=== PATIENT | female | born 1965 | race African-American/Black ===

== ENCOUNTER 2025-05-03 20:25 | Emergency (ER) | payer OTHER, SELFPAY ==
[2025-05-03 20:39] VITALS: BP 148/89; PULSE 84; TEMP 36.9; O2SAT 95; BMI 22.5
--- NOTE | 2025-05-03 21:15 | XR_ITS ---
The [address] [address] Patient Name: JUSTYNA FERRER MRN: [id number] date: 1965 Sex: F Assigned Patient Location: ED.MAIN Current Patient Location: ED.MAIN Accession/Order Number: [id number] Exam Date: 05/03/2025 21:22 Report Date: 05/03/2025 22:00 At the request of: COSTA BARNEY Procedure: XR knee RT 3V XR knee RT 3V 05/03/2025 9:33 PM SIGNS AND SYMPTOMS: ^R Knee effusion PROTOCOL: Frontal and lateral radiographs of the right knee COMPARISON: None FINDINGS: There is a 5 mm radiodense pellets in the soft tissues posterior to the right knee. There is significant prepatellar soft tissue swelling. No significant joint effusion. No fracture or dislocation. The joint spaces are preserved. XR/XR knee RT 3V IMPRESSION: There is significant prepatellar soft tissue swelling. No significant joint effusion. No fracture or dislocation. Impression dictated by: Andrei Casanova M.D. 05/03/2025 10:00 PM Dictation Location: [place] [address] Electronically authenticated by: [id number] Y Date: 05/03/2025 22:00
--- NOTE | 2025-05-03 21:17 | ED.GENADUL1 ---
Documented by User: SAVITA Degroot 05/03/25 21:54 HPI HPI - General Adult General Chief complaint: Nausea/Vomiting/Diarrhea Stated complaint: Nausea/Vomiting/Diarrhea Time Seen by Provider: 05/03/25 21:03 Source: patient Mode of arrival: walk-in History of Present Illness HPI narrative: Patient is a 59-year-old female with a PMH of crack abuse and HIV that presents with complaints of persistent nausea. Patient has been in [facility] since 04/25 and reports that she has been having night sweats, nausea, and diarrhea. She usually does not vomit but has vomited about 4 times a day. Her med list was reviewed from [facility] and she is not currently on any antiemetic. She does note that her right knee and leg is also very swollen and has been this way for about 2 weeks. She states people in her family have congestive heart failure but she has never been diagnosed with that. Related Data Allergies Allergy/AdvReac Type Severity Reaction Status Date / Time Opioids - Morphine Analogues Allergy Agitated Verified 05/03/25 20:38 Review of Systems ROS Status of ROS 10 or more systems reviewed and unremarkable except as noted in history and below PFSH [facility] Social History Little interest or pleasure in doing things: not at all Feeling down, depressed, or hopeless: not at all Exam Narrative Exam Narrative: General: No distress, age-appropriate Skin: Warm, dry, no pallor. No rash. Head: Normocephalic, atraumatic. Neck: Supple, non-tender. Eye: Pupils are equal, round and EOMI. No scleral icterus. Ears, Nose, Mouth, and Throat: No nasal mucosal hypertrophy. Oral mucosa is moist, no posterior oropharynx erythema, uvula is mid-line Cardiovascular: Regular Rate and Rhythm without murmur, gallop or rub. Respiratory: No accessory muscle use or respiratory distress. Lungs are clear to auscultation, no wheezing, rales or rhonchi Chest Wall: no tenderness Musculoskeletal: Full ROM of all extremities, no calf or popliteal tenderness. Large right knee joint effusion, nontender with palpation. Bilateral lower extremity edema, right greater than left, nonpitting. GI: Abdomen is soft, distended, non tender to palpation. No masses appreciated. No rebound, guarding, or rigidity noted. Neurological: A&O x4. No cranial nerve dysfunction observed. No truncal ataxia. Moves all extremities. Sensation intact. Psychiatric: Cooperative and interactive. Normal mood and affect. Constitutional Vital Signs, click to edit/add: Last Vital Signs Temp 98.4 F 05/03/25 20:39 Pulse 84 05/03/25 20:39 Resp 19 05/03/25 20:39 BP 148/89 H 05/03/25 20:39 Pulse Ox 95 05/03/25 20:39 O2 Del Method Room Air 05/03/25 20:39 Documenting provider has reviewed patient's vital signs: yes Course Vital Signs Vital signs: Vital Signs Temperature 98.4 F 05/03/25 20:39 Pulse Rate 84 05/03/25 20:39 Respiratory Rate 19 05/03/25 20:39 Blood Pressure 148/89 H 05/03/25 20:39 Pulse Oximetry 95 05/03/25 20:39 Oxygen Delivery Method Room Air 05/03/25 20:39 Temperature 98.4 F 05/03/25 20:39 Pulse Rate 84 05/03/25 20:39 Respiratory Rate 05/03/25 20:39 Blood Pressure 148/89 H 05/03/25 20:39 Pulse Oximetry 95 05/03/25 20:39 Oxygen Delivery Method Room Air 05/03/25 20:39 Medical Decision Making MDM Narrative Medical decision making narrative: 59-year-old female with a history of HIV and prior crack cocaine use presenting with persistent nausea, vomiting, diarrhea, night sweats, and right knee/leg swelling. Vital signs with BP 148/89, mildly hypertensive, pulse 84, afebrile at 98.4 ?F. 95% O2 saturation on room air. Right hand exam reveals a large joint effusion with no erythema or pitting edema, knee has full ROM and is nontender. Patient able to ambulate on it. No calf pain, erythema, warmth, or palpable cords. Initial labs show a WBC of 6.7 with no left shift and Hgb 12.5; urinalysis notable only for small occult blood, 5?10 RBCs, and 0?2 WBCs. Initial evaluation suggests that her nausea is likely multifactorial, potentially related to HIV, medication effects, or early infectious or metabolic processes. Right knee X-ray, CMP, and BNP are pending to evaluate for structural, metabolic, or cardiac contributors. Symptomatic management initiated with Zofran 4 mg ODT for nausea. She remains hemodynamically stable at this time and patient care was transferred to Dr. Hinojosa at 2200 at the end of my shift. Disposition pending nausea improvement, p.o. challenge, labs and x-ray findings. Differential Diagnosis Differential Diagnosis: Gastroenteritis, medication/substance related, heart failure Lab Data Lab results reviewed: Yes I reviewed the patient's lab results Labs: Lab Results 05/03/25 05/03/25 Range/Units 21:28 21:32 WBC 6.7 (4.0-11.0) 10^3/uL RBC 4.63 (4.20-5.40) 10^6/uL Hgb 12.5 (12.0-16.0) g/dL Hct 39.6 (36.0-48.0) % MCV 85.5 (81.0-99.0) fL MCH 27.0 (26.7-34.0) pg MCHC 31.6 (29.9-35.2) g/dL RDW 14.8 (11.0-15.0) % Plt Count 256 (150-450) 10^3/uL MPV 8.2 L (9.5-13.5) fL Neut % (Auto) 65.0 (43.0-75.0) % Lymph % (Auto) 24.4 (20.5-60.0) % [place] % (Auto) 9.2 (1.7-12.0) % Eos % (Auto) 1.0 (0.9-7.0) % Baso % (Auto) 0.4 (0.2-2.0) % Neut # (Auto) 4.4 (1.4-6.5) 10^3/uL Lymph # (Auto) 1.6 (1.2-3.8) 10^3/uL [place] # (Auto) 0.6 (0.3-0.8) 10^3/uL Eos # (Auto) 0.1 (0.0-0.7) 10^3/uL Baso # (Auto) 0.0 (0.0-0.1) 10^3/uL Abs Immat Gran (auto) 0.00 (0.00-0.03) 10^3/uL Imm/Tot Granulo (auto) 0.0 (0.0-0.5) % Sodium 134 L (136-145) mmol/L Potassium 3.8 (3.5-5.1) mmol/L Chloride 103 (98-107) mmol/L Carbon Dioxide 34.1 H (21.0-32.0) mmol/L Anion Gap 0.7 BUN 15.0 (7.0-18.0) mg/dL Creatinine 0.78 (0.55-1.02) mg/dL Est GFR ( Amer) >60 (>=60 mL/min/1.73m^2) Est GFR (Non-Af Amer) >60 (>=60 mL/min/1.73m^2) BUN/Creatinine Ratio 19.2 Glucose 114 H (74-106) mg/dL Calcium 9.3 (8.5-10.1) mg/dL Total Bilirubin 0.3 (0.2-1.0) mg/dL AST 28 (15-37) U/L ALT 33 (14-59) U/L Alkaline Phosphatase 95 (46-116) U/L NT-Pro-B Natriuret Pep 215.0 (<=900.0) pg/mL Total Protein 7.3 (6.4-8.2) g/dL Albumin 3.3 L (3.4-5.0) g/dL Globulin 4.0 g/dL Albumin/Globulin Ratio 0.8 Urine Color Yellow (YELLOW) Urine Clarity Clear (CLEAR) Urine pH 6.0 (5.0-9.0) Ur Specific [place] 1.020 (1.005-1.025) Urine Protein Negative (NEG/TRACE) mg/dL Urine Glucose (UA) Negative (NEGATIVE) mg/dL Urine Ketones Negative (NEGATIVE) mg/dL Urine Occult Blood Small A (NEGATIVE) Urine Nitrite Negative (NEGATIVE) Urine Bilirubin Negative (NEGATIVE) Urine Urobilinogen 0.2 (0.2-1.0) EU/dL Ur Leukocyte Esterase Negative (NEGATIVE) Urine RBC 5-10 A (0-2) #/HPF Urine WBC 0-2 A (NONE SEEN) #/HPF Ur Squamous Epith Cells None seen (NONE/RARE) #/LPF Urine Crystals None seen (None Seen) #/HPF Urine Bacteria None seen (NONE SEEN) #/HPF Urine Casts None seen (NONE SEEN) #/LPF Urine Mucus None seen (NONE SEEN) Ur Culture Indicated? No Imaging Data Chest x-ray: Radiologist's impression: ITS Impressions Knee X-Ray 05/03/25 21:15 IMPRESSION: There is significant prepatellar soft tissue swelling. No significant joint effusion. No fracture or dislocation. Impression dictated by: Andrei Casanova M.D. 05/03/2025 10:00 PM Dictation Location[facility] Electronically authenticated by: [id number] Y Date: 05/03/2025 22:00 Discharge Plan Discharge Chief Complaint: Nausea/Vomiting/Diarrhea Clinical Impression: Nausea & vomiting, Diarrhea, Bursitis of right knee Patient Disposition: Home, Self-Care Print Language: Lao Instructions: Knee Bursitis (ED), Acute Nausea and Vomiting (ED), Acute Diarrhea (ED) Additional Instructions: follow up with your doctor next week for recheck. follow up with orthopedics regarding your right knee Referrals: Physician,Non-Staff, [Primary Care Provider] - 1 week Documented by User: Dexter Hinojosa MD 05/03/25 23:35 HPI HPI - General Adult General Chief complaint: Nausea/Vomiting/Diarrhea Stated complaint: Nausea/Vomiting/Diarrhea Time Seen by Provider: 05/03/25 21:03 Related Data Allergies Allergy/AdvReac Type Severity Reaction Status Date / Time Opioids - Morphine Analogues Allergy Agitated Verified 05/03/25 20:38 PFSH PFSH Social History Little interest or pleasure in doing things: not at all Feeling down, depressed, or hopeless: not at all Exam Constitutional Vital Signs, click to edit/add: Last Vital Signs Temp 98.4 F 05/03/25 20:39 Pulse 84 05/03/25 20:39 Resp 19 05/03/25 20:39 BP 148/89 H 05/03/25 20:39 Pulse Ox 95 05/03/25 20:39 O2 Del Method Room Air 05/03/25 20:39 Course Vital Signs Vital signs: Vital Signs Temperature 98.4 F 12/19/25 20:39 Pulse Rate 84 05/03/25 20:39 Respiratory Rate 19 05/03/25 20:39 Blood Pressure 148/89 H 05/03/25 20:39 Pulse Oximetry 95 05/03/25 20:39 Oxygen Delivery Method Room Air 05/03/25 20:39 Temperature 98.4 F 05/03/25 20:39 Pulse Rate 84 05/03/25 20:39 Respiratory Rate 19 05/03/25 20:39 Blood Pressure 148/89 H 05/03/25 20:39 Pulse Oximetry 95 05/03/25 20:39 Oxygen Delivery Method Room Air 05/03/25 20:39 Medical Decision Making MDM Narrative Medical decision making narrative: 59-year-old female with a history of HIV and prior crack cocaine use presenting with persistent nausea, vomiting, diarrhea, night sweats, and right knee/leg swelling. Vital signs with BP 148/89, mildly hypertensive, pulse 84, afebrile at 98.4 ?F. 95% O2 saturation on room air. Right hand exam reveals a large joint effusion with no erythema or pitting edema, knee has full ROM and is nontender. Patient able to ambulate on it. No calf pain, erythema, warmth, or palpable cords. Initial labs show a WBC of 6.7 with no left shift and Hgb 12.5; urinalysis notable only for small occult blood, 5?10 RBCs, and 0?2 WBCs. Initial evaluation suggests that her nausea is likely multifactorial, potentially related to HIV, medication effects, or early infectious or metabolic processes. Right knee X-ray, CMP, and BNP are pending to evaluate for structural, metabolic, or cardiac contributors. Symptomatic management initiated with Zofran 4 mg ODT for nausea. She remains hemodynamically stable at this time and patient care was transferred to Dr. Hinojosa at 2200 at the end of my shift. Disposition pending nausea improvement, p.o. challenge, labs and x-ray findings. xray returned normal except prepatella swelling. labs without evidence of dehydration. Patient examined and her knee prepatella effusion is nontender. She is advised to follow up with ortho regarding her knee. Her nausea did resolve with zofran. She does state that she has nausea each AM . will plan Protonix as GERD may be responsible for her AM nausea and zofran to use prn. she is to follow up with a PCP Lab Data Labs: Lab Results 05/03/25 05/03/25 Range/Units 21:28 21:32 WBC 6.7 (4.0-11.0) 10^3/uL RBC 4.63 (4.20-5.40) 10^6/uL Hgb 12.5 (12.0-16.0) g/dL Hct 39.6 (36.0-48.0) % MCV 85.5 (81.0-99.0) fL MCH 27.0 (26.7-34.0) pg MCHC 31.6 (29.9-35.2) g/dL RDW 14.8 (11.0-15.0) % Plt Count 256 (150-450) 10^3/uL MPV 8.2 L (9.5-13.5) fL Neut % (Auto) 65.0 (43.0-75.0) % Lymph % (Auto) 24.4 (20.5-60.0) % [place] % (Auto) 9.2 (1.7-12.0) % Eos % (Auto) 1.0 (0.9-7.0) % Baso % (Auto) 0.4 (0.2-2.0) % Neut # (Auto) 4.4 (1.4-6.5) 10^3/uL Lymph # (Auto) 1.6 (1.2-3.8) 10^3/uL [place] # (Auto) 0.6 (0.3-0.8) 10^3/uL Eos # (Auto) 0.1 (0.0-0.7) 10^3/uL Baso # (Auto) 0.0 (0.0-0.1) 10^3/uL Abs Immat Gran (auto) 0.00 (0.00-0.03) 10^3/uL Imm/Tot Granulo (auto) 0.0 (0.0-0.5) % Sodium 134 L (136-145) mmol/L Potassium 3.8 (3.5-5.1) mmol/L Chloride 103 (98-107) mmol/L Carbon Dioxide 34.1 H (21.0-32.0) mmol/L Anion Gap 0.7 BUN 15.0 (7.0-18.0) mg/dL Creatinine 0.78 (0.55-1.02) mg/dL Est GFR ( Amer) >60 (>=60 mL/min/1.73m^2) Est GFR (Non-Af Amer) >60 (>=60 mL/min/1.73m^2) BUN/Creatinine Ratio 19.2 Glucose 114 H (74-106) mg/dL Calcium 9.3 (8.5-10.1) mg/dL Total Bilirubin 0.3 (0.2-1.0) mg/dL AST 28 (15-37) U/L ALT 33 (14-59) U/L Alkaline Phosphatase 95 (46-116) U/L NT-Pro-B Natriuret Pep 215.0 (<=900.0) pg/mL Total Protein 7.3 (6.4-8.2) g/dL Albumin 3.3 L (3.4-5.0) g/dL Globulin 4.0 g/dL Albumin/Globulin Ratio 0.8 Urine Color Yellow (YELLOW) Urine Clarity Clear (CLEAR) Urine pH 6.0 (5.0-9.0) Ur Specific [place] 1.020 (1.005-1.025) Urine Protein Negative (NEG/TRACE) mg/dL Urine Glucose (UA) Negative (NEGATIVE) mg/dL Urine Ketones Negative (NEGATIVE) mg/dL Urine Occult Blood Small A (NEGATIVE) Urine Nitrite Negative (NEGATIVE) Urine Bilirubin Negative (NEGATIVE) Urine Urobilinogen 0.2 (0.2-1.0) EU/dL Ur Leukocyte Esterase Negative (NEGATIVE) Urine RBC 5-10 A (0-2) #/HPF Urine WBC 0-2 A (NONE SEEN) #/HPF Ur Squamous Epith Cells None seen (NONE/RARE) #/LPF Urine Crystals None seen (None Seen) #/HPF Urine Bacteria None seen (NONE SEEN) #/HPF Urine Casts None seen (NONE SEEN) #/LPF Urine Mucus None seen (NONE SEEN) Ur Culture Indicated? No Imaging Data Chest x-ray: Radiologist's impression: ITS Impressions Knee X-Ray 05/03/25 21:15 IMPRESSION: There is significant prepatellar soft tissue swelling. No significant joint effusion. No fracture or dislocation. Impression dictated by: Andrei Casanova M.D. 05/03/2025 10:00 PM Dictation Location: [facility] Electronically authenticated by: [id number] Y Date: 05/03/2025 22:00 Discharge Plan Discharge Chief Complaint: Nausea/Vomiting/Diarrhea Clinical Impression: Nausea & vomiting, Diarrhea, Bursitis of right knee Patient Disposition: Home, Self-Care Print Language: Lao Instructions: Knee Bursitis (ED), Acute Nausea and Vomiting (ED), Acute Diarrhea (ED) Additional Instructions: follow up with your doctor next week for recheck. follow up with orthopedics regarding your right knee Referrals: Physician,Non-Staff, MD [Primary Care Provider] - 1 week
--- NOTE | 2025-05-03 21:24 | PC.NURSE ---
this patient updated of her plan of care blood draw, x-rays and urine sample and medication. this patient did ambulated to the restroom to provide a urine sample
[2025-05-03] MEDS: ONDANSETRON 4 MG RAPDIS TABLET SL (21:36)
[2025-05-03 21:38] LABS: Glucose Urine UA NEGATIVE (NEGATIVE)
[2025-05-03 21:38] LABS: Hematocrit 39.6 % (36.0-48.0); Hemoglobin 12.5 g/dL (12.0-16.0); Immature Granulocytes Abs Auto 0.00 10^3/uL (0.00-0.03); Immature Granulocytes Pct Auto 0.0 % (0.0-0.5); Lymphocytes Absolute Auto 1.6 10^3/uL (1.2-3.8); Mean Corpuscular HGB Conc 31.6 g/dL (29.9-35.2); Mean Corpuscular Hemoglobin 27.0 pg (26.7-34.0); Mean Corpuscular Volume 85.5 fL (81.0-99.0); Platelet Count 256 10^3/uL (150-450); Red Blood Count 4.63 10^6/uL (4.20-5.40); White Blood Count 6.7 10^3/uL (4.0-11.0)
--- OUTSIDE RECORDS SUMMARY | 2025-05-03 21:39 | XMS_ITS | Clinical Summary ---
Author Organization [facility] Address [address] [place] [address] Phone Care Team Providers Care Mechanical Systems Engineer Name Role Phone Scooter Nava MD Primary Care Provider Social History Tobacco UseTypesPacks/DayYears UsedDateSmoking Tobacco: Never Assessed CommentsUnknownSex and Gender InformationValueDate RecordedSex Assigned at Not on fileLegal OlmAavhgu61/26/2022 8:10 AM ESTGender IdentityNot on fileSexual OrientationNot on file Plan of Treatment Health MaintenanceDue DateLast DoneCommentsCT Equyojlngfql34/22/1965Colonoscopy 1964Colorectal Cancer Rwpmchygk60/22/1965FIT-DNA (Cologuard)1964FIT 1964HIV Rkeinwchd41/22/1965Lipid Panel1964 3504Mwomtjvyviopc59/22/1965 Yearly Adult Qflupfbf29/22/1965MMR Vaccines (1 of 1 - Standard series)1965 Hepatitis C Kezkfqklu28/22/1983Cervical Cancer Csacppqvp36/22/1986HPV/Cotest 1985Pap Smear1985DTaP/Tdap/Td Vaccines (1 - Tdap)1986Mammogram 2004Pneumococcal Vaccine (1 of 1 - PCV)2014Zoster Vaccines (1 of 2) 2014COVID-19 Vaccine (1 - season)2025Influenza Vaccine (#1) 2025RSV High Risk: (Elderly (60+) or Population) (1 - 1-dose 75+ series)2039HIB VaccinesAged OutNo longer eligible based on patient's age to complete this topicHPV VaccinesAged OutNo longer eligible based on patient's age to complete this topicHepatitis A VaccinesAged OutNo longer eligible based on patient's age to complete this topicHepatitis B VaccinesAged OutNo longer eligible based on patient's age to complete this topicIPV VaccinesAged OutNo longer eligible based on patient's age to complete this topicMeningococcal VaccineAged OutNo longer eligible based on patient's age to complete this topic Rotavirus VaccinesAged OutNo longer eligible based on patient's age to complete this topic Care Teams Team MemberRelationshipSpecialtyStart DateEnd Date Scooter Nava MD [address] [address] PCP - General05/22/15
--- OUTSIDE RECORDS SUMMARY | 2025-05-03 21:40 | XMS_ITS | Clinical Summary ---
Author Organization [facility] Address [address] [place] [id number] Care Team Providers Care Certified Professional Midwife Name Role Phone [place], [facility] Primary Ca re Provider Allergies Active AllergyReactionsCriticalityNoted RwrnGmtuxtszLbvnyistvEvireqip25/05/2021 JgvfsmohnojPplf61/22/2016 Rash, pruritic. 10/2015 TramadolGI Upset,Gikuwodz98/08/2017 Medications MedicationSigDispense QuantityRefillsLast FilledStart DateEnd DateStatus benzonatate (TESSALON PERLE) 100 mg capsule Take 100 mg by mouth three times daily as needed for Cough. 09/10/2020ctive budesonide-formoterol (SYMBICORT) 80-4.5 mcg/actuation inhaler Inhale 2 Puffs as instructed twice daily. 09/10/2020ctive clotrimazole (LOTRIMIN, CLOTRIM) 1 % cream Apply to affected area twice daily. 09/10/2020ctive dolutegravir (TIVICAY) 50 mg tablet Take 50 mg by mouth daily with breakfast. 08/02/2017Active emtricitabine-tenofovir alafenamide (DESCOVY) 200-25 mg tab(s) Take 1 tablet by mouth once daily. 08/02/2017Active hydroCHLOROthiazide 12.5 mg capsule Take 12.5 mg by mouth once daily as needed (Leg swelling). 01/28/2020Active mirtazapine (REMERON) 15 mg tablet Take 15 mg by mouth at bedtime as needed. 09/10/2020ctive valACYclovir (VALTREX) 1 gram Take 1,000 mg by mouth once daily. 03/28/2020Active albuterol HFA (PROVENTIL HFA, VENTOLIN HFA) 90 mcg/actuation inhaler 07/31/2019Active melatonin 3 mg tablet Take 3 mg by mouth daily at bedtime.Active acetaminophen (TYLENOL) 500 mg tablet Take 2 tablets by mouth every 8 hours as needed for pain. 30 tablet 10/29/2020ctive Additional Information Patient not taking.Reported on 02/22/2022 ibuprofen (MOTRIN) 800 mg tablet Take 1 tablet by mouth every 8 hours as needed for pain. 10 tablet 03/02/2021ctive Additional Information Patient not taking.Reported on 02/22/2022 loratadine (CLARITIN) 10 mg tablet Take 1 tablet by mouth once daily. 30 tablet 09/02/2021ctive omeprazole (PRILOSEC) 40 mg capsule Take 40 mg by mouth once daily.Active ergocalciferol, vitamin D2, (VITAMIN D2 ORAL) Take by mouth.Active cloNIDine HCl (CATAPRES) 0.1 mg tablet Take 0.1 mg by mouth every 8 hours. for withdrawalsActive doxepin capsule 50 mg Take 50 mg by mouth daily at bedtime.Active DULCOLAX, BISACODYL, ORAL Take 10 mg by mouth as needed.Active cyclobenzaprine (FLEXERIL) 10 mg tablet Take 10 mg by mouth every 8 hours as needed.Active folic acid 1 mg tablet Take 1 mg by mouth once daily.Active ibuprofen (MOTRIN) 400 mg tablet Take 400 mg by mouth every 6 hours as needed.Active loperamide HCl (IMODIUM A-D) 2 mg tab Take 2 mg by mouth as needed.Active multivitamin tablet Take 1 tablet by mouth once daily.Active thiamine (VITAMIN B1) 100 mg tablet Take 100 mg by mouth once daily.Active metoprolol tartrate, short acting, (LOPRESSOR) 25 mg tablet Take 12.5 mg by mouth two times a day.Active Active Problems ProblemNoted DateDiagnosed DateMultiple rib eguhujqzg88/05/2021hronic hoyyslcjbp22/05/2021eg yfnzhffk47/05/2021ipolar 1 disorder, mixed08/22/2016 Generalized anxiety eniweoln05/10/2012HIV donjlohbd08/13/1998 Resolved Problems ProblemNoted DateDiagnosed DateResolved HoarQwzqikpsfvk34/16/202110/HTN (hypertension)OPD (chronic obstructive pulmonary disease) ocaine use disorder, moderate, uceokbiyas57/04/2018 09/17/2020hest pain12/30/sophageal Depressive disorder, not elsewhere ffuzultrpf37/14/ Family History Medical HistoryRelationCommentsDiabetesPaternal GrandmotherRelationStatus CommentsPaternal Grandmother Social History Tobacco UseTypesPacks/DayYears UsedDateSmoking Tobacco: Every DayCigarettes Smokeless Tobacco: Never Tobacco Cessation:Ready to Q uit: Not Asked; Counseling Given: Not Answered Comments:PT STATES SMOKES OCCASIONALLY Alcohol UseStandard Drinks/WeekCommentsNo0 (1 standard drink = 0.6 oz pure alcohol)PHQ-2AnswerDate RecordedPHQ2 Uvzay751Hunger Vital SignAnswerDate RecordedWithin the past 12 months, you worried that your food would run out before you got the money to buymore.Often true05/16/2024Ran Out of Food in the Last YearNot on file05/16/2024rea Deprivation IndexAnswerDate RecordedNational Score (1-100), lower number is lower cosw634103/03/2023State Score (1-10), lower number is lower uqmf7193Data from: https://www.neighborhoodatlas.medicine.[facility].edu/. Last address used for sv[address]ct[address]CommentsNoSex and Gender Information ValueDate RecordedSex Assigned at BirthNot on fileLegal GdhWyrrcr89/02/2012 9:41 AM ESTGender IdentityNot on fileSexual OrientationNot on file Last Filed Vital Signs Vital SignReadingTime TakenCommentsBlood Zeznpqqs612/7508 11:00 AM EDT Ysmbb6537 10:30 AM JGTWmsyzeiqzua31 ??C (98.6 ??F)12/20/2024 4:52 AM EDT Respiratory Slni8244 11:00 AM EDTOxygen Nokqcrrojm00%12/20/2024 10:30 AM EDTInhaled Oxygen Concentration--Txwpdc69.5 kg (140 lb)05/16/2024 10:08 AM EST Dxveql351.6 cm (5' 6 )05/16/2024 10:08 AM ESTBody Mass Index22.6005/16/2024 10:08 AM EST Plan of Treatment Health MaintenanceDue DateLast DoneCommentsMeningococcal Conjugate Vaccine (1 - Risk 2-dose series)1966Cervical Cancer Tqxbbofba21/22/1976Depression Ulaqxwkuo39/22/1983MMR Vaccine (1 of 2 - Risk 2-dose series)1982Hepatitis A Vaccine (1 of 2 - Risk 2-dose series)1983Shingrix Vaccine (1 of 2) 1983CT Ywnhueytczzb20/22/2010Cologuard (FIT-DNA)2009Fecal Occult Blood07/07/20091379Pqndbmmrsjngc15/22/2010RSV Vaccine (1 - Risk 50-74 years 1-dose series)2014Mammogram Shvtkawdi18, 10/05/2011Colonoscopy Colorectal Cancer Jwhlwezrn73/26/2017Covid-19 Vaccine (2 - Moderna risk series)/1Pneumococcal Vaccine: 50+ (4 of 4 - PCV20 or PCV21), 01/04/2014, 09/19/2012, Additional history existsDTaP,Tdap,Td Vaccine (2 - Td or Tdap)Hepatitis B Vaccine (1 of 3 - Risk 3-dose series)2024Influenza Vaccine (#1)2025 04/12/2018, 03/23/2017, 02/24/2016, Additional history existsDiabetes Screening /11/2024, 12/22/2023, 12/22/2023, Additional history existsLipid Opohuycqm26/12/2023, 09/10/2020, 04/04/2019, Additional history exists Hepatitis C EmrwfmdkwUmggpkfif09/08/2024Hib VaccineAged OutNo longer eligible based on patient's age to complete this topic Procedures Procedure NamePriorityDate/TimeAssociated DiagnosisCommentsCOMPREHENSIVE METABOLIC BEPHYUNTV54/07/2025 6:23 AM EDT LIPID PANEL/LDL12/20/2006 6:32 AM EDT from Last 3 Months or Most Recently Relevant to Health Maintenance Results * (ABNORMAL) COMPREHENSIVE METABOLIC PANEL (12/20/2024 6:23 AM EDT)Component ValueRef RangeTest MethodAnalysis TimePerformed AtPathologist Signature Protein, Total7.16.3 - 8.0 g/dL12/20/2024 6:52 AM [facility] LABAlbumin3.8(L)3.9 - 4.9 g/dL12/20/2024 6:52 AM [facility] LABCalcium, Total9.08.5 - 10.2 mg/dL12/20/2024 6:52 AM EDT [facility] LABBilirubin, Total0.50.2 - 1.3 mg/dL12/20/2024 6:52 AM [facility] LABAlkaline Jdkifrsildm9134 - 123 U/L 12/20/2024 6:52 AM [facility] NEYEEH9096 - 35 U/L 12/20/2024 6:52 AM [facility] WRRIQC281 - 38 U/L 12/20/2024 6:52 AM [facility] PBUWkddsjs7132 - 99 mg/dL 12/20/2024 6:52 AM [facility] LABComment: The [place] Diabetes Association (ADA) provides guidance for cutoff values for fasting glucose andrandom glucose. The ADA defines fasting as no caloric intake for at least 8 hours. Fasting plasma glucose results between 100 to 125 mg/dL indicate increased risk for diabetes (prediabetes). Fasting plasma glucose results greater than or equal to 126 mg/dL meet the criteria for diagnosis of diabetes. In the absence of unequivocal hyperglycemia, results should be confirmed by repeat testing. In a patient with classic symptoms of hyperglycemia or hyperglycemic crisis, random plasma glucose results greater than or equal to 200 mg/dL meet the criteria for diagnosis of diabetes. Reference: Standards of Medical Care in Diabetes 2016, [place] Diabetes Association. Diabetes Care. 2016.39(Suppl 1). TSR759 - 21 mg/dL12/20/2024 6:52 AM [facility] Creatinine0.850.58 - 0.96 mg/dL12/20/2024 6:52 AM [facility] HZVJdvvxs902089 - 144 mmol/L12/20/2024 6:52 AM [facility] LABPotassium3.5(L)3.7 - 5.1 mmol/L12/20/2024 6:52 AM [facility] BMKWmgxkobs01518 - 107 mmol/L12/20/2024 6:52 AM [facility] VKKDU62107 - 30 mmol/L12/20/2024 6:52 AM [facility] LABAnion Vti821 - 15 mmol/L12/20/2024 6:52 AM [facility] LABEstimated Glomerular Filtration Rate79>=60 mL/min/1.73m 12/20/2024 6:52 AM [facility] LABComment:Estimated Glomerular Filtration Rate (eGFR) is calculated using the 2020 CKD-EPI creatinine equation. This equation utilizes serum creatinine, sex, and age as parameters. The creatinine assay has traceable calibration to isotope dilution- mass spectrometry. Refer to KDIGO guidelines for clinical interpretation. In patients with unstable renal function, e.g. those with acute kidney injury, the eGFRmay not accurately reflect actual GFR.Specimen (Source)Anatomical Location / LateralityCollection Method / VolumeCollection TimeReceived TimeBloodBLOOD SPECIMEN / UnknownVenipuncture / Qqybhdj8912/20/2024 6:23 AM EDT12/20/2024 6:34 AM EDT Narrative Authorizing ProviderResult TypeResult StatusSomy Thottathil MDLABORATORYFinal ResultPerforming OrganizationAddressCity/State/ZIP CodePhone Number [facility] [address] [facility] [address] [address], [place] * (ABNORMAL) LIPID PANEL/LDL (12/20/2006 6:32 AM EDT)ComponentValueRef RangeTest MethodAnalysis TimePerformed AtPathologist SignatureCholesterol, Kecwo691 . TOTAL CHOLESTEROL - ATP CLASSIFICATION (mg/dl) <200 DESIRABLE 200-239 ? BORDERLINE HIGH >=240 HIGH<200 mg/dLSUNSHINE XGMYKLHOBVDomcsdkafyfo854 . TRIGLYCERIDE - ATP III CLASSIFICATION (mg/dl) <150 NORMAL 150-199 ? BORDERLINE HIGH 200-499 ? HIGH >=500 VERY HIGH<150 mg/dLSUNSHINE LABORATORYHDL Jgnubvjgdis73 . HDL CHOLESTEROL - ATP III CLASSIFICATION (mg/dl) <40 LOW >=60 HIGH(L)40 - 59 mg/dLSUNSHINE LABORATORYLDL Cholesterol, Pogmbz970 . LDL CHOLESTEROL - ATP III CLASSIFICATION (mg/dl) <100 OPTIMAL 100-129 ? NEAR OR ABOVE OPTIMAL 130-159 ? BORDERLINE HIGH 160-189 ? HIGH >=190 VERY HIGH<130 mg/dLLACASS LAKE HOSPITAL LABORATORYSpecimen (Source)Anatomical Location / LateralityCollection Method / VolumeCollection TimeReceived Time12/20/2006 6:32 AM EDT Narrative Authorizing ProviderResult TypeResult StatusMourasuman Gong MDLABORATORYFinal ResultPerforming OrganizationAddressCity/State/ZIP CodePhone Number [facility] [address] [place] [address] [phone] from Last 3 Months or Most Recently Relevant to Health Maintenance Insurance Care Teams Team MemberRelationshipSpecialtyStart [facility], [facility] HospitalMD [address] [place] [address] PCP - GeneralFamily Ublbprhj07/7/23
[2025-05-03 21:45] LABS: Cast Seen? NONE SEEN #/LPF (NONE SEEN); Crystals Seen? None Seen #/HPF (None Seen); Urine Culture Indicated NO
[2025-05-03 22:00] LABS: Alanine Aminotransferase 33 U/L (14-59); Albumin Globulin Ratio 0.8; Albumin Level 3.3 g/dL (3.4-5.0); Alkaline Phosphatase 95 U/L (46-116); Anion Gap 0.7; Aspartate Amino Transferase 28 U/L (15-37); Blood Urea Nitrogen 15.0 mg/dL (7.0-18.0); Calcium 9.3 mg/dL (8.5-10.1); Carbon Dioxide 34.1 mmol/L (21.0-32.0); Chloride 103 mmol/L (98-107); Estimated GFR (African America >60 (>=60 mL/min/1.73m^2); Estimated GFR (Non-African Ame >60 (>=60 mL/min/1.73m^2); Globulin 4.0 g/dL; Glucose 114 mg/dL (74-106); NT Pro B Type Natriuretic Pept 215.0 pg/mL (<=900.0); Potassium 3.8 mmol/L (3.5-5.1); Sodium 134 mmol/L (136-145); Total Protein 7.3 g/dL (6.4-8.2)
--- NOTE | 2025-05-03 22:22 | PC.NURSE ---
this patient resting on her right on the bed, i informed her still waiting on all of the test results. this patient has no vomiting episodes and nausea is better. this patient voices no concerns, needs and shows no signs of distress
[2025-05-04] MEDS: PANTOPRAZOLE SODIUM 40 MG TABLET.DR PO
[2025-05-04 00:04] VITALS: BP 152/69; PULSE 68; O2SAT 97
--- NOTE | 2025-05-04 00:06 | PC.NURSE ---
i gave this patient verbal and written discharge orders along with 1 Rx and this patent voices yes to understanding these. at time of discharge this patient voices no concerns, needs and shows no signs of distress
== END 2025-05-04 00:04 | disposition home or self-care (01) ==
PROVIDERS: Physician Assistant; Emergency Provider Internal Medicine
DX: R11.2 Nausea with vomiting, unspecified (principal); R19.7 Diarrhea, unspecified; M70.51 Other bursitis of knee, right knee; F14.11 Cocaine abuse, in remission; Z21 Asymptomatic human immunodeficiency virus [HIV] infection status
CPT/HCPCS: 36415; 73562; 80053; 81001; 83880; 85025; 99284; Q0162